=== PATIENT | female | born 1955 | race Caucasian/White ===

== ENCOUNTER 2024-01-17 13:20 | Inpatient (IN) | payer MEDICARE, SELFPAY ==
[2024-01-17] VITALS (11 sets, daily range): BP systolic 104–175; BP diastolic 70–122; PULSE 92–130; RESP 15–26; TEMP 36.1–36.9; O2SAT 90–99; BMI 26.7; BMI 26.2
[2024-01-17] MEDS: Metoprolol Tartrate 5 MG/5 ML Vial IV (14:38)
[2024-01-17] MEDS: 0.9% Normal Saline (500mL Bag) 500 ML 999 ML IV (14:38)
[2024-01-17 14:49] LABS: Absolute Lymphocyte Count 2.19 X10^3/uL (0.83-4.51); Absolute Neutrophil Count 6.1 X10^3/uL (2.0-7.7); Basophil# 0.05 X10^3/uL; Basophil% 0.5 % (0-1); Eosinophil# 0.12 X10^3/uL; Eosinophils% 1.3 % (0-5); Hematocrit 38.7 % (37-47); Hemoglobin 12.4 g/dL (12.0-15.0); Lymphocyte # 2.19 X10^3/ul (0.83-4.51); Mean Corpuscular Hgb 28.5 pg (27.0-32.0); Mean Platelet Vol. 10.9 fl (6.2-12.0); Monocyte# 0.61 X10^3/uL; Monocyte% 6.7 % (0-10); NRBC Flagged by Analyzer 0 % (0-5); Neutrophil # 6.13 X10^3/uL (2.7-7.7); Neutrophil % 67.1 % (47-70); Platelet Count 304 K/mm3 (150-450); RBC Distribution Width CV 13.5 % (11.6-14.6); RBC Distribution Width SD 44.1 fl (35.1-43.9); Red Blood Count 4.35 M/mm3 (4.2-5.4); White Blood Count 9.1 K/mm3 (4.4-11.0)
--- NOTE | 2024-01-17 14:50 | RAD_ITS ---
STUDY: X-RAY CHEST REASON FOR EXAM: Female, 69 years old. sob, cough TECHNIQUE: PA and lateral views of the chest. COMPARISON: None. FINDINGS: EKG electrodes are seen. There is evidence of vascular congestion and mild CHF with bibasilar atelectasis. Blunting of the costophrenic angles bilaterally. There is mild cardiac enlargement. Normal mediastinum and ann-marie. Normal visualized pulmonary arteries. There is atherosclerotic tortuosity of the aortic arch and descending thoracic aorta. There is a dextroscoliosis of the thoracic spine. Normal visualized ribs, clavicles, and shoulders. There is no demonstrated abnormality of the visualized soft tissue structures of the upper abdomen. RAD/Chest PA and Lateral IMPRESSION: Cardiomegaly. Findings suggest mild degree CHF with bibasilar atelectasis and blunting of both costophrenic angles. Electronically Signed: Yovanny Stephens MD at 15:10 EDT ,
[2024-01-17 14:53] LABS: International Normalized Ratio 1.1; Prothrombin Time (Protime)PT. 14.4 SECONDS (11.7-14.9)
[2024-01-17 14:54] LABS: Partial Thromboplast Time 31.2 Seconds (24.1-36.2)
[2024-01-17 15:02] LABS: ALB/GLOB Ratio 0.9 RATIO (0.9-2.4); AST(SGOT) 63 U/L (15-37); Alanine Aminotransfer ALT/SGPT 73 U/L (13-56); Albumin, Serum 3.5 g/dL (3.2-5.0); Alkaline Phosphatase 103 U/L (45-117); Anion Gap 8 (5-15); BUN 13 mg/dL (7-18); BUN/Creat Ratio 21.6 RATIO (10-20); Calcium,Total 9.2 mg/dL (8.5-10.1); Chloride 105 mmol/L (98-107); EST Glomerular Filtration Rate 105 mL/min (>60); Est Glom Filt Rate - Afr Amer 127 mL/min (>60); Estimated Creatinine Clearance 69.76 ml/min; Globulin 3.7 g/dL (2.2-4.2); Glucose 113 mg/dL (74-106); Potassium 3.7 mmol/L (3.5-5.1); Protein, Total 7.2 g/dL (6.4-8.2); Sodium Level 137 mmol/L (136-145); Troponin-I HS 36 pg/mL (3.0-54.0)
[2024-01-17 15:10] LABS: D-Dimer Quantitative (DVT/PE) 1.35 FEU/ug/m (0.27-0.49)
--- NOTE | 2024-01-17 15:16 | CT_ITS ---
STUDY: CTA CHEST REASON FOR EXAM: Female, 69 years old. sob, elevated dimer, PE concern RADIATION DOSAGE (If Supplied By Facility): CTDIvol = ( 10.67 ) mGy, DLP = ( 410.52 ) mGycm TECHNIQUE: The examination was performed with the intravenous administration of IV 100mL Isovue-370. Post-processing of the angiographic images was performed, with multiplanar reformation and 3D reconstruction. Individualized dose optimization techniques were used for this CT. COMPARISON: None. FINDINGS: Normal enhancement of the main pulmonary artery and right and left pulmonary arteries. Normal enhancement of the bilateral peripheral pulmonary arteries. There is no demonstrated pulmonary embolism. Normal thoracic aorta and visualized great vessels. There is no demonstrated aortic dissection. There is moderate cardiomegaly. There are calcifications of the coronary arteries. Moderate prevascular adenopathy. Hilar adenopathy not excluded. Normal visualized trachea. The lungs are well expanded. Bilateral small pleural effusions right worse than left, with compressive atelectasis of both lower lobes. Patchy groundglass areas of density in both lungs especially lower lobes consistent with subsegmental atelectasis and possible mild pulmonary edema. Prominent diffuse thickening of the wall of the small airways to the lower lung pro consistent with bronchitis. Normal chest wall structures. There are degenerative changes of thoracic spine. Normal visualized upper abdomen. CT/CTA Chest W/WO Contrast IMPRESSION: Normal CTA chest examination, without a demonstrated pulmonary embolism or arterial dissection. Cardiomegaly. Pleural effusions. Diffuse bronchitis. Patchy areas of pulmonary density. Electronically Signed: Raciel Montilla MD at 16:21 EDT ,
[2024-01-17 15:19] LABS: BNP,B-Type NATRIURETIC PEPTIDE 413.7 pg/mL (0-100)
--- NOTE | 2024-01-17 15:52 | EDS_ITS ---
HPI History of Present Illness Chief Complaint: Palpitations Informant: patient Narrative Narrative: Patient is a 69-year-old female with history of anxiety but denies any other medical history presenting with 1 week of worsening respiratory symptoms. She states she has had a cough or cold for the past week. She is been more short of breath the past few days. She has not been sleeping well because of her breathing. She denies any fever but has been having episodes of sweating. Denies any chest pain, lightheadedness, dizziness or appetite change. Denies history of DVT or PE or swelling of the legs. Denies any recent medication changes and does not take any blood thinners. Denies any associated GI or symptoms. Notes her mother lived until 97 and ultimately of COPD and her father of a heart attack at age 45. No other complaints or concerns reported at this time. [facility] Medical History Uterine fibroid Home Medications ?Medication ?Instructions ?Recorded ?Last Taken ?Type paroxetine HCl 30 mg tablet 30 mg PO DAILY 01/17/24 Unknown History Allergy/AdvReac Type Severity Reaction Status Date / Time Sulfa (Sulfonamide Allergy Hives Verified 01/17/24 13:21 Antibiotics) Social History Smoking Status: Never smoker ROS ROS ED Constitutional Constitutional ED: Reports sweats; Denies chills or fever(s) ENT ENT ED: Reports rhinorrhea Cardiovascular Cardiovascular: Reports orthopnea; Denies chest pain, palpitations or racing heartbeat Respiratory/Chest Respiratory/Chest: Reports cough, dyspnea on exertion and orthopnea Gastrointestinal Gastrointestinal: Denies abdominal pain, nausea or vomiting Musculoskeletal Musculoskeletal: Denies arthralgias or myalgias Integumentary Denies rash Neurologic Neurologic: Denies headache(s) Psychiatric Psychiatric: Reports anxiety Hematologic/Lymphatic Hematologic/Lymphatic: Denies easy bleeding or easy bruising EXAM Physical Exam Const Vital Signs: 01/17/24 13:21 01/17/24 13:40 01/17/24 13:42 Temperature 97 F L Temperature Source Temporal Pulse Rate 130 H Respiratory Rate 18 Respiratory Effort Short of Breath Short of Breath Respiratory Pattern Tachypnea Blood Pressure 175/122 H Blood Pressure Mean 139 Pulse Ox 99 Oxygen Delivery Method Room Air Room Air Oxygen Flow Rate (L/min) 01/17/24 14:37 01/17/24 16:00 Temperature Temperature Source Pulse Rate 110 H 106 H Respiratory Rate 20 H 26 H Respiratory Effort Respiratory Pattern Blood Pressure 124/96 H 119/87 H Blood Pressure Mean 105 97 Pulse Ox 95 92 Oxygen Delivery Method Nasal Cannula Nasal Cannula Oxygen Flow Rate (L/min) 2 2 Positive well nourished and well developed General Appearance ED: well developed and NAD HEENT Reports moist mucous membranes Eyes PERRL and EOMs intact bilaterally Neck supple and no JVD Resp normal respiratory effort Resp Narrative: Slight crackles at the base appreciated, slightly worse on the right Auscultation: diminished lung sounds bilateral lower GI non-tender Auscultation: normoactive bowel sounds Palpation: soft Extremity normal to inspection General Extremety ED: Negative for edema General Extremity: Negative for edema Neuro oriented x3 Sensorium / Orientation: alert Motor Exam: Negative for general weakness Psych mental status grossly normal Skin no wounds Rashes: no rashes MDM MDM MDM Narrative Medical decision making narrative: Patient presents for worsening shortness of breath, dyspnea on exertion and cough. Show she is a little dizzy intermittently with exertion. Upon arrival patient is hypertensive and tachycardic. EKG shows atrial fibrillation with rapid ventricular response at a rate of 110 bpm. In the room patient fluctuates between 90 and 110 bpm but with any type of movement exertion will go up to the 130s. She is also intermittently hypoxic going down to 88 to 90%. She does not wear baseline oxygen. Differential includes was not limited to pneumonia, heart failure, new onset atrial fibrillation, ACS, pulmonary emboli, pneumothorax, symptomatic anemia Patient initially given a 500 cc bolus for concern of infectious etiology as a cause of her presentation as well as 5 mg of IV metoprolol. She remains hemodynamically stable in the ER. CBC largely normal. Coags are normal. D- dimer is elevated 1.[address] is ordered. She has an elevated TSH of 12.7 but her free T4 and T3 are normal. High C troponin is normal at 36 and her BNP is elevated at 413. Chest x-ray viewed by myself as well as radiology shows cardiomegaly and finding suggestive of mild CHF with blunting of the costophrenic angles. CTA of the chest shows no pulmonary emboli But does show cardiomegaly, pleural effusions, diffuse bronchitis and patchy areas of pulmonary density which is consistent with subsegmental atelectasis and possible mild pulmonary edema. Given her new onset of atrial fibrillation as well as new onset of suspected fluid overload/heart failure and hypoxia with ambulation (goes down to 88%) I do think patient benefit from inpatient evaluation and inpatient cardiology consult. Patient is agreeable. She started on 20 mg IV Lasix and given 25 mg oral metoprolol. Will discuss with admitting physician. Lab Data Labs: Laboratory Results - last 24 hr 01/17/24 01/17/24 12:35 13:35 WBC 9.1 RBC 4.35 Hgb 12.4 Hct 38.7 MCV 89.0 MCH 28.5 MCHC 32.0 RDW Std Deviation 44.1 H RDW Coeff of Fabi 13.5 Plt Count 304 MPV 10.9 Immature Gran % (Auto) 0.400 Neut % (Auto) 67.1 Lymph % (Auto) 24.0 [place] % (Auto) 6.7 Eos % (Auto) 1.3 Baso % (Auto) 0.5 Absolute Neuts (auto) 6.1 Absolute Lymphs (auto) 2.19 Nucleated RBC % 0 PT 14.4 INR 1.1 APTT 31.2 D-Dimer Quant (PE/DVT) 1.35 H* Sodium 137 Potassium 3.7 Chloride 105 Carbon Dioxide 24.0 Anion Gap 8 BUN 13 Creatinine 0.60 Estim Creat Clear Calc 69.76 Est GFR (MDRD) Af Amer 127 Est GFR (MDRD) Non-Af 105 BUN/Creatinine Ratio 21.6 H Glucose 113 H Calcium 9.2 Total Bilirubin 0.50 AST 63 H ALT 73 H Alkaline Phosphatase 103 Troponin I High Sens 36 B-Natriuretic Peptide 413.7 H Total Protein 7.2 Albumin 3.5 Globulin 3.7 Albumin/Globulin Ratio 0.9 TSH 12.700 H Free T4 0.80 Free T3 pg/dL 2.2 Radiography Diagnostic Testing: Clinical Impression(s) from Imaging Studies Chest X-Ray 01/17/24 14:50 IMPRESSION: Cardiomegaly. Findings suggest mild degree CHF with bibasilar atelectasis and blunting of both costophrenic angles. Electronically Signed: Yovanny Stephens MD at 15:10 EDT , Chest CTA 01/17/24 15:16 IMPRESSION: Normal CTA chest examination, without a demonstrated pulmonary embolism or arterial dissection. Cardiomegaly. Pleural effusions. Diffuse bronchitis. Patchy areas of pulmonary density. Electronically Signed: Raciel Montilla MD at 16:21 EDT , Rhythm Strip Rhythm Strip: A-fib Rate: 110 Ectopy: None EKG Initial EKG: Attestation: I personally reviewed and interpreted this EKG as follows: Interpretation: Atrial Fibrillation Comments: Atrial fibrillation with rapid ventricular response at a rate of 110 bpm Normal axis Normal intervals Normal ST segments Management Discussion w/another healthcare provider: Hospitalist Discharge Plan Triage Chief Complaint: Palpitations Other Complaint: Shortness of Breath ED Provider: Hafsa Dahl Dx/Rx/DC Orders Clinical Impression: Atrial fibrillation with RVR, Pleural effusion, Hypoxia, CHF (congestive heart failure) Prescriptions: No Action paroxetine HCl 30 mg tablet 30 mg PO DAILY Primary Care Provider: Babar Bush Referrals: Babar Bush MD [Primary Care Provider] - Print Language: [place]atian Disposition Disposition: Acute Care Hospital [facility]
[2024-01-17 16:20] LABS: Free T3 2.2 pg/mL (2.18-3.98)
[2024-01-17] MEDS: Furosemide 40 MG/4 ML Vial IV (17:24)
[2024-01-17] MEDS: Metoprolol Tartrate 25 MG Tablet PO (17:24)
--- NOTE | 2024-01-17 18:04 | PCM.HP.STD ---
HPI - General General Date of Admission: 01/17/24 Date of Service: 01/17/24 Chief Complaint: Increasing SOB HPI Narrative EUN FARRIS, is a 69-year-old female with history of anxiety presented to [facility] ED 01/17/2024 with palpitations. She was sent over by [facility] urgent care due to increased cough and shortness of breath for the past couple days and she was told she had an irregular heartbeat and to come to the ED. In the ED heart rate 130 initially with blood pressure 175/122 when she was given 5 of IV Lopressor. In ED patient with TSH of 12.7, D-dimer 1.35, BNP 413 and chest x-ray with cardiomegaly and findings suggestive of mild degree of CHF. Given concerns for fluid overload/CHF as well as new A-fib with heart rate up to 130s with any movement and SpO2 intermittently down to 88% hospitalist contacted for admission. Patient evaluated at bedside. She reports that she has had increasing shortness of breath with cough with minimal sputum over the past 1 week with some stuffy nose and sore throat, over the past 2 days she has had significant dyspnea on exertion limiting her mobility and today she had to stop twice when she was walking from her car to urgent care. Denies fevers, denies any purulent or foul-smelling sputum, no chest pain, no noted swelling or weight gain, ROS negative aside from a cat bite to her foot yesterday which at this time has no cellulitic changes or complaints [facility], [facility] Medical History Uterine fibroid Home Medications ?Medication ?Instructions ?Recorded ?Last Taken ?Type paroxetine HCl 30 mg tablet 30 mg PO DAILY 01/17/24 Unknown History Allergy/AdvReac Type Severity Reaction Status Date / Time Sulfa (Sulfonamide Allergy Hives Verified 01/17/24 13:21 Antibiotics) Social History Smoking Status: Never smoker ROS ROS Narrative General: Denies fever/chills HENT: Denies headache, has had nasal congestion and sore throat EYES: Denies changes in vision Resp: Nonproductive cough and increasing shortness of breath Cardiac: Denies chest pain GI: Denies abdominal pain, denies changes in bowel, denies nausea/vomiting : Denies changes in urination Extremity: Denies swelling MSK: Denies weakness Neuro: Denies any numbness/tingling Heme: Denies any bleeding or bruising Skin: Denies rashes, did get cat bite to foot yesterday Psychiatric: No complaints voiced Vital Signs Vital Signs Vital Signs: 01/17/24 13:21 01/17/24 13:40 01/17/24 13:42 Temperature 97 F L Temperature Source Temporal Pulse Rate 130 H Respiratory Rate 18 Respiratory Effort Short of Breath Short of Breath Respiratory Pattern Tachypnea Blood Pressure 175/122 H Blood Pressure Mean 139 Pulse Ox 99 Oxygen Delivery Method Room Air Room Air Oxygen Flow Rate (L/min) 01/17/24 14:37 01/17/24 16:00 Temperature Temperature Source Pulse Rate 110 H 106 H Respiratory Rate 20 H 26 H Respiratory Effort Respiratory Pattern Blood Pressure 124/96 H 119/87 H Blood Pressure Mean 105 97 Pulse Ox 95 92 Oxygen Delivery Method Nasal Cannula Nasal Cannula Oxygen Flow Rate (L/min) 2 2 Weight Weight: 75.2 kg Body Mass Index (BMI) 26.7 Physical Exam Narrative General: Alert, oriented, no apparent distress HEENT: Atraumatic, normocephalic Eyes: Anicteric, normal conjunctiva, extraocular movements grossly intact Neck: Supple Respiratory: Crackles at the bases, slightly increased respiratory effort Cardiovascular: Irregularly irregular with intermittent tachycardia GI: Soft, nontender, nondistended Extremities: No edema Musculoskeletal: Moving all extremities Neuro: No overt focal neurological deficits Skin: No rashes appreciated, no cellulitic changes where patient had cat bite Psych: Cooperative Results Lab / Micro Data 01/17/24 13:35 01/17/24 13:35 Labs: Laboratory Results - last 24 hr 01/17/24 12:35: Free T4 0.80, Free T3 pg/dL 2.2 01/17/24 13:35: WBC 9.1, RBC 4.35, Hgb 12.4, Hct 38.7, MCV 89.0, MCH 28.5, MCHC 32.0, RDW Std Deviation 44.1 H, RDW Coeff of Fabi 13.5, Plt Count 304, MPV 10.9, Immature Gran % (Auto) 0.400, Neut % (Auto) 67.1, Lymph % (Auto) 24.0, [place] % (Auto) 6.7, Eos % (Auto) 1.3, Baso % (Auto) 0.5, Absolute Neuts (auto) 6.1, Absolute Lymphs (auto) 2.19, Nucleated RBC % 0, PT 14.4, INR 1.1, APTT 31.2, D-Dimer Quant (PE/DVT) 1.35 H*, Sodium 137, Potassium 3.7, Chloride 105, Carbon Dioxide 24.0, Anion Gap 8, BUN 13, Creatinine 0.60, Estim Creat Clear Calc 69.76, Est GFR (MDRD) Af Amer 127, Est GFR (MDRD) Non-Af 105, BUN/Creatinine Ratio 21.6 H, Glucose 113 H, Calcium 9.2, Total Bilirubin 0.50, AST 63 H, ALT 73 H, Alkaline Phosphatase 103, Troponin I High Sens 36, B-Natriuretic Peptide 413.7 H, Total Protein 7.2, Albumin 3.5, Globulin 3.7, Albumin/Globulin Ratio 0.9, TSH 12.700 H Micro: Microbiology 01/17/24 14:36 Mucosa - Nose SARS-CoV-2, Influenza & RSV (PCR) - Final Rhythm Strip Rhythm Strip: A-fib Rate: 110 Ectopy: None Imaging Radiology Impression Chest X-Ray 01/17/24 14:50 IMPRESSION: Cardiomegaly. Findings suggest mild degree CHF with bibasilar atelectasis and blunting of both costophrenic angles. Electronically Signed: Yovanny Stephens MD at 15:10 EDT , Chest CTA 01/17/24 15:16 IMPRESSION: Normal CTA chest examination, without a demonstrated pulmonary embolism or arterial dissection. Cardiomegaly. Pleural effusions. Diffuse bronchitis. Patchy areas of pulmonary density. Electronically Signed: Raciel Montilla MD at 16:21 EDT , Assessment & Plan Assessment/Plan (1) Hypoxia: (2) Fluid overload: (3) Atrial fibrillation: PLAN: Plan #New onset atrial fibrillation -Admit to telemetry -Metoprolol started in the ED orally, continue oral metoprolol -[id number] presently at 2 so will not start empiric anticoagulation, strongly suspect heart failure which would give pt a 3, if echo is consistent with heart failure will need to begin anticoagulation which patient was agreeable to -Will order echo -CTA no PE, covid negative -TSH 12.7, no hyperthyroidism -Check Mag -Unclear if this is truly A-fib with RVR or if patient has afib w/heart failure and elevated heart rate is physiologic response as at rest heart rate between 90 and 110 but with exertion goes up to 130s -Will avoid aggressively controlling rate in the event that this is compensatory for low EF while awaiting echo but if heart rate sustains an elevated rate may need further adjustments in rate control, given unclear EF would potentially need to consider amiodarone if drip required for rate control -Patient denies any tobacco, substance, alcohol use # Increased shortness of breath with concern for fluid overload due to heart failure -BNP 413 -Chest x-ray with cardiomegaly and findings suggest mild degree of CHF and CTA w/ no PE but cardiomegaly, pleural effusions -Echo -Fluid restriction -Dose of Lasix in ED, will continue, given patient not floridly overloaded and is Lasix na?ve and received 40 IV x 1 in ED will continue at 20 IV daily -Daily weights, I's and O's -Further medical management pending echocardiogram results -No known history of heart failure however findings strongly suggest that increased shortness of breath is due to a heart failure exacerbation #Hypoxemia -Patient down to 88% on room air -Suspect this is secondary to fluid overload primarily -Continue IV Lasix -Does have some patchy areas of pulmonary density and diffuse bronchitis on CT however so cannot rule out a secondary component- if oxygenation does not improve with treating fluid overload may need further pulm workup -Will check respiratory panel as well given O2 and findings on CT #Cat bite -Patient with cat bite on foot which warrants antibiotic prophylaxis -Started on Augmentin 875 mg twice daily which can be continued for 3 to 5 days, suspect 3 may be adequate # Elevated TSH -TSH of 12 and free T4 technically normal but on lower end -Will repeat studies in the morning, Will likely need to begin Synthroid on or prior to discharge #Diffuse bronchitis and patchy areas of pulm densities -Covid negative -Will check resp panel -No abx indicated -Incentive spirometry #Hx anxiety -Continue paroxetine #DVT ppx: Abraham Harding MD Charges/Coding Visit Charges Inpatient E&M: 35787 Init Hosp L2
--- NOTE | 2024-01-17 19:16 | ECHOD_ITS ---
Reason For Study: CHF, NEW ONSET AFIB Procedure This was a 2D Doppler, Color Flow transthoracic echocardiogram. Exam performed portable in patient room. Left Ventricle Mildly dilated left ventricle. The estimated ejection fraction is 45-50 %. Right Ventricle Normal right ventricle. Normal systolic function. Atria The left atrium is moderately enlarged. The right atrium is moderately enlarged. Mitral Valve The mitral valve is structurally normal. No prolapse or stenosis seen. Moderately severe (3+) mitral valve insufficiency. Tricuspid Valve Normal tricuspid valve. Mild to moderate (1-2+) tricuspid valve insufficiency. Great Vessels Normal aortic root. Pericardium/Pleural No pericardial effusion. MMode/2D Measurements & Calculations LVIDd: 4.6 cm IVSd: 0.85 cm Ao root diam: 3.2 cm LVIDs: 3.5 cm LVPWd: 0.75 cm LA dimension: 4.6 cm RVDd: 3.4 cm FS: 22.5 % LAV(MOD-bp): 89.0 ml SV(MOD-sp4): 37.6 ml LVAd ap4: 26.2 cm2 LAV(MOD-bp) Indexed: 48.7 ml/m2 LVLd ap4: 7.5 cm LAV(MOD-sp2): 81.3 ml EDV(MOD-sp4): 75.5 ml LAV(MOD-sp4): 91.4 ml EDV(sp4-el): 77.7 ml LVAs ap4: 17.0 cm2 LVLs ap4: 6.6 cm ESV(MOD-sp4): 38.0 ml ESV(sp4-el): 37.5 ml EF(MOD-sp4): 49.7 % EF(sp4-el): 51.7 % SV(sp4-el): 40.1 ml LA A4 area: 27.3 cm2 RA A4 area: 30.6 cm2 TAPSE: 1.2 cm Doppler Measurements & Calculations MV E max [place]: 110.1 cm/sec MV V2 max: 140.0 cm/sec Ao V2 max: 89.2 cm/sec MV max P.9 mmHg Ao max P.2 mmHg MV V2 mean: 60.3 cm/sec Ao V2 mean: 71.9 cm/sec MV mean P.1 mmHg Ao mean P.2 mmHg MV V2 VTI: 30.3 cm Ao V2 VTI: 15.8 cm AV (velocity ratio): 0.79 LV V1 max: 80.6 cm/sec MR max [place]: 475.7 cm/sec TR max [place]: 279.2 cm/sec LV V1 max P.7 mmHg MR max P.5 mmHg TR max P.2 mmHg LV V1 mean P.6 mmHg MR mean [place]: 343.3 cm/sec LV V1 mean: 59.6 cm/sec MR mean P.5 mmHg LV V1 VTI: 12.6 cm MR VTI: 151.6 cm ECHO/Echo Complete Interpretation Summary The estimated ejection fraction is 45-50 %. Mild LV systolic dysfunction With mild global LV hypokinesia Moderate to severe MR Mild to moderate TR. No prior echo to compare Ordering Physician: Nicky Harding Performed By: Jj Talbot RCS
[2024-01-17] MEDS: Amox/Clavulanate 875 MG Tablet PO (21:06)
[2024-01-17] MEDS: Metoprolol Tartrate 25 MG Tablet 12.5 MG PO (21:06)
--- NOTE | 2024-01-17 22:10 | EKG12_ITS ---
Test Reason : PALPITATIONS Blood Pressure : / mmHG Vent. Rate : 110 BPM Atrial Rate : 000 BPM P-R Int : 000 ms QRS Dur : 082 ms QT Int : 334 ms P-R-T Axes : 000 086 093 degrees QTc Int : 452 ms Atrial fibrillation with rapid ventricular response Possible Lateral infarct , age undetermined Abnormal ECG Confirmed by ROXY HORNER ([id number]), loan expeditor FITO PARKER ([id number]) on 01/21/2024 8:25:10 AM Referred By: Confirmed By:ROXY HORNER
--- NOTE | 2024-01-17 23:02 | EKG12_ITS ---
Test Reason : RHYTHM CHANGE Blood Pressure : / mmHG Vent. Rate : 091 BPM Atrial Rate : 000 BPM P-R Int : 000 ms QRS Dur : 080 ms QT Int : 396 ms P-R-T Axes : 000 088 098 degrees QTc Int : 487 ms Atrial fibrillation Possible Lateral infarct , age undetermined Abnormal ECG When compared with ECG of 17-JAN-2024 13:36, MANUAL COMPARISON REQUIRED, DATA IS UNCONFIRMED Confirmed by ROXY HORNER ([id number]), publication editor LARISSA GERMAIN ([id number]) on 01/21/2024 10:17:28 AM Referred By: Confirmed By:ROXY HORNER
[2024-01-18 03:10] VITALS: BP 129/69; PULSE 95; RESP 18; TEMP 36.9; O2SAT 92
[2024-01-18 05:15] VITALS: BMI 26.2
[2024-01-18 06:44] LABS: Absolute Lymphocyte Count 1.73 X10^3/uL (0.83-4.51); Absolute Neutrophil Count 5.3 X10^3/uL (2.0-7.7); Basophil# 0.04 X10^3/uL; Basophil% 0.5 % (0-1); Eosinophil# 0.12 X10^3/uL; Eosinophils% 1.6 % (0-5); Hematocrit 37.8 % (37-47); Hemoglobin 12.3 g/dL (12.0-15.0); Lymphocyte # 1.73 X10^3/ul (0.83-4.51); Lymphocyte % 22.6 % (19-41); Mean Corp Hgb Conc 32.5 g/dL (32-36); Mean Corpuscular Hgb 28.6 pg (27.0-32.0); Mean Corpuscular Volume 87.9 fL (81-99); Mean Platelet Vol. 10.1 fl (6.2-12.0); Monocyte# 0.49 X10^3/uL; Monocyte% 6.4 % (0-10); NRBC Flagged by Analyzer 0 % (0-5); Neutrophil # 5.26 X10^3/uL (2.7-7.7); Neutrophil % 68.5 % (47-70); Platelet Count 276 K/mm3 (150-450); RBC Distribution Width CV 13.6 % (11.6-14.6); RBC Distribution Width SD 43.6 fl (35.1-43.9); White Blood Count 7.7 K/mm3 (4.4-11.0)
[2024-01-18 07:30] LABS: AST(SGOT) 66 U/L (15-37); Alanine Aminotransfer ALT/SGPT 94 U/L (13-56); Albumin, Serum 3.4 g/dL (3.2-5.0); Alkaline Phosphatase 101 U/L (45-117); Anion Gap 6 (5-15); BUN 12 mg/dL (7-18); BUN/Creat Ratio 18.5 RATIO (10-20); Calcium,Total 9.1 mg/dL (8.5-10.1); Chloride 106 mmol/L (98-107); Cholesterol 137 mg/dL (200); Creatinine, Serum 0.65 mg/dL (0.55-1.02); EST Glomerular Filtration Rate 97 mL/min (>60); Est Glom Filt Rate - Afr Amer 117 mL/min (>60); Estimated Creatinine Clearance 69.08 ml/min; Globulin 3.4 g/dL (2.2-4.2); Glucose 100 mg/dL (74-106); High Density Lipoprotein 42 mg/dL; Potassium 3.8 mmol/L (3.5-5.1); Protein, Total 6.8 g/dL (6.4-8.2); Sodium Level 138 mmol/L (136-145); T4 Free Direct 0.91 ng/dL (0.76-1.46); Triglycerides 159 mg/dL; Very Low Density Lipoprotein 32 mg/dL (5-40)
[2024-01-18 10:07] VITALS: BP 111/82; PULSE 88; RESP 16; TEMP 36.6; O2SAT 97
[2024-01-18 10:11] VITALS: BP 111/82; PULSE 88
[2024-01-18] MEDS: PARoxetine 10 MG Tablet 30 MG PO (10:11)
[2024-01-18] MEDS: Metoprolol Tartrate 25 MG Tablet 12.5 MG PO ×2 (10:11→21:07)
[2024-01-18] MEDS: Furosemide 20 MG/2 ML VIAL IV (10:11)
[2024-01-18] MEDS: Amox/Clavulanate 875 MG Tablet PO ×2 (10:11→21:07)
[2024-01-18] MEDS: 0.9% Saline Lock 10 ML Syringe IV ×2 (10:18→21:08)
--- NOTE | 2024-01-18 12:03 | PN.HOSP_ITS ---
Subjective Subjective Doing well, appears to be rate controlled with still in A-fib Objective Data Objective Data Vital Signs: Vital Signs Temp Pulse Resp BP Pulse Ox O2 Del Method O2 Flow Rate 97.8 F 88 16 111/82 H 97 Room Air 2 01/18/24 10:07 01/18/24 10:11 01/18/24 10:07 01/18/24 10:11 01/18/24 10:07 01/18/24 10:07 01/17/24 16:00 Oxygen Flow Rate (L/min) 2 Oxygen Delivery Method Room Air Weight: 162 lb 4.163 oz Body Mass Index (BMI) 26.2 Intake & Output: Intake and Output for Last 24 Hours 01/17/24 01/18/24 01/19/24 03:59 03:59 03:59 Intake Total 700 / 700 250 / 250 Balance 700 / 700 250 / 250 Lab / Micro Data 01/18/24 06:30 01/18/24 06:30 Labs: Laboratory Results - last 24 hr 01/17/24 12:35: Free T4 0.80, Free T3 pg/dL 2.2 01/17/24 13:35: WBC 9.1, RBC 4.35, Hgb 12.4, Hct 38.7, MCV 89.0, MCH 28.5, MCHC 32.0, RDW Std Deviation 44.1 H, RDW Coeff of Fabi 13.5, Plt Count 304, MPV 10.9, Immature Gran % (Auto) 0.400, Neut % (Auto) 67.1, Lymph % (Auto) 24.0, [place] % (Auto) 6.7, Eos % (Auto) 1.3, Baso % (Auto) 0.5, Absolute Neuts (auto) 6.1, Absolute Lymphs (auto) 2.19, Nucleated RBC % 0, PT 14.4, INR 1.1, APTT 31.2, D- Dimer Quant (PE/DVT) 1.35 H*, Sodium 137, Potassium 3.7, Chloride 105, Carbon Dioxide 24.0, Anion Gap 8, BUN 13, Creatinine 0.60, Estim Creat Clear Calc 69.76, Est GFR (MDRD) Af Amer 127, Est GFR (MDRD) Non-Af 105, BUN/Creatinine Ratio 21.6 H, Glucose 113 H, Calcium 9.2, Total Bilirubin 0.50, AST 63 H, ALT 73 H, Alkaline Phosphatase 103, Troponin I High Sens 36, B-Natriuretic Peptide 413.7 H, Total Protein 7.2, Albumin 3.5, Globulin 3.7, Albumin/Globulin Ratio 0.9, TSH 12.700 H 01/18/24 06:30: WBC 7.7, RBC 4.30, Hgb 12.3, Hct 37.8, MCV 87.9, MCH 28.6, MCHC 32.5, RDW Std Deviation 43.6, RDW Coeff of Fabi 13.6, Plt Count 276, MPV 10.1, Immature Gran % (Auto) 0.400, Neut % (Auto) 68.5, Lymph % (Auto) 22.6, [place] % (Auto) 6.4, Eos % (Auto) 1.6, Baso % (Auto) 0.5, Absolute Neuts (auto) 5.3, Absolute Lymphs (auto) 1.73, Nucleated RBC % 0, Sodium 138, Potassium 3.8, Chloride 106, Carbon Dioxide 26.0, Anion Gap 6, BUN 12, Creatinine 0.65, Estim Creat Clear Calc 69.08, Est GFR (MDRD) Af Amer 117, Est GFR (MDRD) Non-Af 97, BUN/Creatinine Ratio 18.5, Glucose 100, Calcium 9.1, Magnesium 2.0, Total Bilirubin 0.60, AST 66 H, ALT 94 H, Alkaline Phosphatase 101, Total Protein 6.8, Albumin 3.4, Globulin 3.4, Albumin/Globulin Ratio 1.0, Triglycerides 159, Cholesterol 137, LDL Cholesterol 63, VLDL Cholesterol 32, HDL Cholesterol 42, T SH 11.300 H, Free T4 0.91 Micro: Microbiology 01/17/24 19:35 Mucosa - Nasopharyngeal Respiratory Panel (PCR) - Final Rhinovirus 01/17/24 14:36 Mucosa - Nose SARS-CoV-2, Influenza & RSV (PCR) - Final Radiography Diagnostic Testing: Radiology Impression Chest X-Ray 01/17/24 14:50 IMPRESSION: Cardiomegaly. Findings suggest mild degree CHF with bibasilar atelectasis and blunting of both costophrenic angles. Electronically Signed: Yovanny Stephens MD at 15:10 EDT , Chest CTA 01/17/24 15:16 IMPRESSION: Normal CTA chest examination, without a demonstrated pulmonary embolism or arterial dissection. Cardiomegaly. Pleural effusions. Diffuse bronchitis. Patchy areas of pulmonary density. Electronically Signed: Raciel Montilla MD at 16:21 EDT , Rhythm Strip Rhythm Strip: A-fib Rate: 110 Ectopy: None Physical Exam Narrative General: Alert, Oriented x3, Cooperative, No apparent distress HEENT: Atraumatic, PERRLA, EOMI, Normocephalic Oral: Moist Mucosa Neck: Supple, No JVD Lungs: Diminished, Normal air movement, No rhonchi, No wheeze, No rales Cardiovascular: Regular rate, Regular Rhythm, Normal S1, Normal S2, No murmurs Abdomen: Soft, Non Tender, Non-Distended, No Hepato-splenomegaly Extremities: No edema, Capillary Refill Less than 3 Seconds Skin: No rashes, No breakdown Musculoskeletal: No Tenderness to Palpation of Joints or Extremities Neurological: No focal neurological deficits, Motor Exam 5/5 strength throughout, Sensory exam intact to light touch and pain Psych/Mental Status: Normal Affect, Appropriate Assessment & Plan Assessment/Plan (1) Hypoxia: (2) Fluid overload: (3) Atrial fibrillation: PLAN: Plan 1. New onset A-fib potentially leading to heart failure ? It is a little bit unclear whether or not heart failure precipitated A-fib or the other way around ? Continue with twice daily metoprolol ?continue with low-dose IV Lasix ? Echo is pending ? [id number] of 2 currently will likely need to be started on anticoagulation, does appear to be family history of A-fib ? TSH of 11.3, but a normal T3 3 and T4, will need to follow-up as an outpatient ? Currently not requiring oxygen, her hypoxia is resolved 2. Cat bite ? She does have a lesion on her foot, continue with Augmentin 3. Anxiety/depression ? Stable ? Continue with her home medications DVT: Eliquis Charges/Coding Visit Charges Inpatient E&M: 66807 Subs Hosp L2
--- NOTE | 2024-01-18 13:02 | CASEMGMT ---
RN CM Face to Face with patient for initial transition planning/care coordination assessment. RN CM introduced self and role at [facility]. Patient lying in bed, alert and oriented. Patient willing to participate in assessment and is able to answer all questions appropriately. Care providers, pharmacy, and demographics verified. Strata: 1 PCP: Rachelle Specialists: none Preferred Pharmacy: [facility] Insurance: [facility] Prescription Benefit: yes, [employer] savings card provided to patient Living Will/HPOA: yes, friend Roseline Hua LNOK: friend, Living Arrangements: Patient lives alone in a single story home with 2 steps and railing to enter. Patient is independent at home. Transportation: self, neighbor, friend DME/HHC: Leonor has cane and walker at home. Patient wishes to discharge home, denies need for home health at this time. Patient states he has no further needs or concerns at this time. CM to follow for discharge planning needs that may arise. Disposition Plan: Patient to discharge home with family support and follow-up plans in place. Kayla STAFFORD, RN, CM
[2024-01-18 15:43] VITALS: BP 108/78; PULSE 97; RESP 16; TEMP 36.6; O2SAT 97
[2024-01-18 21:02] VITALS: BP 103/71; PULSE 92; RESP 16; TEMP 36.4; O2SAT 94
[2024-01-18] MEDS: APIXABAN 5 MG TABLET PO (21:06)
[2024-01-18 21:07] VITALS: PULSE 92
[2024-01-19] VITALS (11 sets, daily range): BP systolic 89–121; BP diastolic 60–94; PULSE 70–106; RESP 14–16; TEMP 36.4–36.6; O2SAT 95–99; BMI 26.3
[2024-01-19] MEDS: Furosemide 20 MG/2 ML VIAL IV (08:18)
[2024-01-19] MEDS: Amox/Clavulanate 875 MG Tablet PO ×2 (08:18→21:46)
[2024-01-19] MEDS: APIXABAN 5 MG TABLET PO ×2 (08:18→21:46)
[2024-01-19] MEDS: PARoxetine 10 MG Tablet 30 MG PO (08:19)
[2024-01-19] MEDS: 0.9% Saline Lock 10 ML Syringe IV (08:19)
[2024-01-19] MEDS: Metoprolol Tartrate 25 MG Tablet 12.5 MG PO ×2 (08:19→11:01)
--- NOTE | 2024-01-19 12:23 | PCM.CONS.C ---
Assessment & Plan Assessment/Plan (1) CHF (congestive heart failure): (2) Pleural effusion: (3) Atrial fibrillation: PLAN: Plan 69-year-old patient presented with symptoms of shortness of breath Symptoms got worse recently when she had been seen and followed by her primary care provider at the [facility] She denies any symptoms of chest pain. Patient has significant family history of CAD Her father at a younger age 45, with myocardial infarction EKG showed atrial fibrillation, T wave inversion noted in V1 and V2. The echocardiographic evaluation showed LV function is reduced with global LV hypokinesia Ejection fraction during a 45-50%, moderate to severe MR CTA reveals no evidence of PE or aortic dissection, small bilateral pleural effusion with pulmonary edema.. Started on treatment by the medical team on a diuretic as well as on anticoagulation and rate control with beta-rodolfo metoprolol She responded well to the current treatment with improvement in symptoms of shortness of breath and better rate control of atrial fibrillation Also of note the patient has a rhinovirus. . Cardiac care plan recommendations; Agree with current treatment plan of the medical team Long-term anticoagulation with Eliquis, renal function is normal 5 mg twice daily Rate control with beta-rodolfo low-dose as tolerated To add CHEMA inhibitor/Entresto as she has reduced EF around 45 to 50% Also reevaluation by cardiac team as an outpatient by echocardiogram to assess severity of the MR possible transesophageal echocardiogram To be scheduled for synchronized cardioversion in 6 to 8 weeks following anticoagulation with Eliquis. If she remained stable does not have any active chest pain and no elevation of cardiac markers with a high sensitive troponin which I requested time to then from cardiac standpoint she can be discharged with a plan to follow-up as an outpatient with the cardiac team Rubén Burns MD,[facility] HPI Consult Data Date of Consult: 01/19/24 HPI Narrative Reason for Consultation: A-fib/acute systolic heart failure HPI Narrative: EUN FARRIS, is a 69 F who [facility] Medical History Uterine fibroid Home Medications ?Medication ?Instructions ?Recorded ?Last Taken ?Type paroxetine HCl 30 mg tablet 30 mg PO DAILY mood disorder 01/17/24 01/17/24 10:00 History Allergy/AdvReac Type Severity Reaction Status Date / Time Sulfa (Sulfonamide Allergy Hives Verified 01/17/24 13:21 Antibiotics) Family History (Updated 01/17/24 @ 19:46 by Caridad Garner) Father Myocardial infarction Mother CVA (cerebral vascular accident) Social History Smoking Status: Never smoker Physical Exam Cardio Cardio Narrative: Seen and evaluated at bedside along with the nursing staff Alert and orientated and was able to give a detailed history about her current presentation. library monitor revealed A-fib with controlled ventricular rate Cardiac examination S1-S2 is regular no systolic or diastolic murmur Chest examination mildly diminished air entry bilateral with mild inspiratory rales Risk Stratification Risk Stratification Applicable: No Objective Data Vital Signs: Vital Signs Temp Pulse Resp BP Pulse Ox O2 Del Method O2 Flow Rate 97.8 F 87 16 94/74 95 Room Air 2 01/19/24 10:56 01/19/24 11:01 01/19/24 10:56 01/19/24 11:01 01/19/24 10:56 01/19/24 10:56 01/17/24 16:00 Oxygen Flow Rate (L/min) 2 Oxygen Delivery Method Room Air Weight: 162 lb 14.746 oz Body Mass Index (BMI) 26.3 Intake & Output: Intake and Output for Last 24 Hours 01/17/24 01/18/24 01/19/24 23:59 23:59 23:59 Intake Total 500 / 700 1470 / 1470 Balance 500 / 700 1470 / 1470 Lab / Micro Data 01/18/24 06:30 01/18/24 06:30 Rhythm Strip Rhythm Strip: A-fib Rate: 110 Ectopy: None Cardiology Labs/Tests Rhythm: EKG: ECHO: Stress Test: Cardiac Cath: PCI: CT Surgery: Holter monitor: EPS: PPM: CXR: Chest CT Scan: Radiography Diagnostic Testing: Radiology Impression Echocardiogram 01/17/24 19:16 Interpretation Summary The estimated ejection fraction is 45-50 %. Mild LV systolic dysfunction With mild global LV hypokinesia Moderate to severe MR Mild to moderate TR. No prior echo to compare Ordering Physician: Nicky Harding Performed By: Jj Talbot RCS
[2024-01-19 12:50] LABS: Troponin-I HS 11 pg/mL (3.0-54.0)
--- NOTE | 2024-01-19 13:27 | PCM.PN.HOSP ---
Subjective Subjective Doing well, no issues overnight. Feels much better Objective Data Objective Data Vital Signs: Vital Signs Temp Pulse Resp BP Pulse Ox O2 Del Method O2 Flow Rate 97.8 F 87 16 94/74 95 Room Air 2 01/19/24 10:56 01/19/24 11:01 01/19/24 10:56 01/19/24 11:01 01/19/24 10:56 01/19/24 10:56 01/17/24 16:00 Oxygen Flow Rate (L/min) 2 Oxygen Delivery Method Room Air Weight: 162 lb 14.746 oz Body Mass Index (BMI) 26.3 Intake & Output: Intake and Output for Last 24 Hours 01/18/24 01/19/24 01/20/24 03:59 03:59 03:59 Intake Total 700 / 700 1270 / 1270 Balance 700 / 700 1270 / 1270 Lab / Micro Data 01/18/24 06:30 01/18/24 06:30 Labs: Laboratory Results - last 24 hr 01/19/24 12:20: Troponin I High Sens 11 Micro: Microbiology 01/17/24 19:35 Mucosa - Nasopharyngeal Respiratory Panel (PCR) - Final Rhinovirus 01/17/24 14:36 Mucosa - Nose SARS-CoV-2, Influenza & RSV (PCR) - Final Radiography Diagnostic Testing: Radiology Impression Echocardiogram 01/17/24 19:16 Interpretation Summary The estimated ejection fraction is 45-50 %. Mild LV systolic dysfunction With mild global LV hypokinesia Moderate to severe MR Mild to moderate TR. No prior echo to compare Ordering Physician: Nicky Harding Performed By: Jj Talbot RCS Rhythm Strip Rhythm Strip: A-fib Rate: 110 Ectopy: None Physical Exam Narrative General: Alert, Oriented x3, Cooperative, No apparent distress HEENT: Atraumatic, PERRLA, EOMI, Normocephalic Oral: Moist Mucosa Neck: Supple, No JVD Lungs: Diminished, Normal air movement, No rhonchi, No wheeze, No rales Cardiovascular: Regular rate, Regular Rhythm, Normal S1, Normal S2, No murmurs Abdomen: Soft, Non Tender, Non-Distended, No Hepato-splenomegaly Extremities: No edema, Capillary Refill Less than 3 Seconds Skin: No rashes, No breakdown, no obvious cellulitic changes cat bite Musculoskeletal: No Tenderness to Palpation of Joints or Extremities Neurological: No focal neurological deficits, Motor Exam 5/5 strength throughout, Sensory exam intact to light touch and pain Psych/Mental Status: Normal Affect, Appropriate Assessment & Plan Assessment/Plan (1) Hypoxia: (2) Fluid overload: (3) Atrial fibrillation: PLAN: Plan 1. New onset A-fib potentially leading to acute systolic CHF ? It is a little bit unclear whether or not heart failure precipitated A-fib or the other way around ? Continue with twice daily metoprolol, will increase to 25 mg p.o. twice daily ?continue with low-dose IV Lasix ? Echo with an EF of 45 to 50% with mild global left ventricular hypokinesia. She did have some inferior T wave inversions so troponins are pending ? Will consult cardiology secondary to the echo findings ? [id number] of 2 currently will likely need to be started on anticoagulation, does appear to be family history of A-fib ? TSH of 11.3, but a normal T3 3 and T4, will need to follow-up as an outpatient ? Currently not requiring oxygen, her hypoxia is resolved 2. Cat bite ? She does have a lesion on her foot, continue with Augmentin 3. Anxiety/depression ? Stable ? Continue with her home medications DVT: Eliquis Charges/Coding Visit Charges Inpatient E&M: 07372 Subs Hosp L2
[2024-01-19 15:13] LABS: Troponin-I HS 10 pg/mL (3.0-54.0)
[2024-01-19] MEDS: Metoprolol Tartrate 25 MG Tablet PO (21:47)
[2024-01-20 03:30] VITALS: BP 103/81; PULSE 81; RESP 14; TEMP 36.5; O2SAT 95
[2024-01-20 03:35] VITALS: BP 103/81; PULSE 89; RESP 14; TEMP 36.5; O2SAT 94
[2024-01-20 05:02] VITALS: BMI 26.3
[2024-01-20 05:44] LABS: Absolute Lymphocyte Count 1.74 X10^3/uL (0.83-4.51); Absolute Neutrophil Count 5.3 X10^3/uL (2.0-7.7); Basophil# 0.03 X10^3/uL; Basophil% 0.4 % (0-1); Eosinophil# 0.17 X10^3/uL; Eosinophils% 2.1 % (0-5); Hematocrit 39.5 % (37-47); Hemoglobin 12.4 g/dL (12.0-15.0); Lymphocyte # 1.74 X10^3/ul (0.83-4.51); Lymphocyte % 21.9 % (19-41); Mean Corp Hgb Conc 31.4 g/dL (32-36); Mean Corpuscular Hgb 28.5 pg (27.0-32.0); Mean Corpuscular Volume 90.8 fL (81-99); Mean Platelet Vol. 10.4 fl (6.2-12.0); Monocyte# 0.64 X10^3/uL; Monocyte% 8.1 % (0-10); NRBC Flagged by Analyzer 0 % (0-5); Neutrophil # 5.32 X10^3/uL (2.7-7.7); Neutrophil % 67.1 % (47-70); Platelet Count 281 K/mm3 (150-450); RBC Distribution Width CV 13.5 % (11.6-14.6); RBC Distribution Width SD 45.1 fl (35.1-43.9); Red Blood Count 4.35 M/mm3 (4.2-5.4); White Blood Count 7.9 K/mm3 (4.4-11.0)
[2024-01-20 06:07] LABS: Anion Gap 6 (5-15); BUN 16 mg/dL (7-18); BUN/Creat Ratio 24.2 RATIO (10-20); Calcium,Total 9.2 mg/dL (8.5-10.1); Chloride 104 mmol/L (98-107); Creatinine, Serum 0.66 mg/dL (0.55-1.02); EST Glomerular Filtration Rate 94 mL/min (>60); Est Glom Filt Rate - Afr Amer 114 mL/min (>60); Estimated Creatinine Clearance 69.25 ml/min; Glucose 101 mg/dL (74-106); Sodium Level 138 mmol/L (136-145)
[2024-01-20 08:56] VITALS: BP 104/76; PULSE 88; RESP 16; TEMP 36.5; O2SAT 98
[2024-01-20] MEDS: APIXABAN 5 MG TABLET PO (09:04)
[2024-01-20] MEDS: Amox/Clavulanate 875 MG Tablet PO (09:04)
[2024-01-20] MEDS: PARoxetine 10 MG Tablet 30 MG PO (09:04)
[2024-01-20 09:05] VITALS: BP 104/76; PULSE 88
[2024-01-20] MEDS: Metoprolol Tartrate 25 MG Tablet PO (09:05)
[2024-01-20] MEDS: Furosemide 40 MG Tablet PO (09:09)
[2024-01-20 09:10] VITALS: O2SAT 90; O2SAT 95
--- NOTE | 2024-01-20 10:12 | DS.PCM_ITS ---
Providers Date of Admission: 01/17/24 Date of Discharge: 01/20/24 Primary Care Physician: Dr. Babar Bush MD Consultations 01/19/24 08:31 Consult: Cardiology Routine Consulting Provider: Rubén Burns Reason for Consult: Slight systolic dysfunction with hypokinesis EMERGENT Consult: No MD Notified: Yes Date Notified: 01/19/24 Time Notified: 08:50 Method of Notification: Verbal Reason For Visit: NEW ONSET AFIB, NEW ONSET SUSPECTED HFW/FLUID Diagnosis Discharge Diagnosis (1) Hypoxia: Status: Acute Code(s): R09.02 - Hypoxemia (2) Fluid overload: Status: Acute Code(s): E87.70 - Fluid overload, unspecified (3) Atrial fibrillation: Status: Acute Code(s): I48.91 - Unspecified atrial fibrillation Medications at Discharge Home Medications paroxetine HCl 30 mg tablet 30 mg PO DAILY mood disorder 01/17/24 apixaban 5 mg tablet (Eliquis) 5 mg PO BID #60 tabs 01/20/24 furosemide 20 mg tablet (Lasix) 20 mg PO DAILY #30 tabs 01/20/24 metoprolol tartrate 25 mg tablet 25 mg PO BID #60 tabs 01/20/24 Hospital Course Operations None Procedures 2-D Echocardiogram, EKG and - (Chest x-ray/CTA chest) Summary of Care Provided Minutes Spent on Discharge: 38 Hospital Course: Ms Lomax is a 69-year-old white female who presents emergency department at [facility] on 01/17/2024 with the chief complaint of worsening shortness of breath specifically noted with exertion. She was sent over by [facility] due to shortness of breath that been going on for couple of days. She also was found to have an irregular heartbeat and told to follow-up in the emergency department here for evaluation. She indicated that her shortness of breath had limited her mobility and she had to stop twice on the day of presentation when she was walking from her car to the urgent care. She denied fever or chills, purulent or foul-smelling sputum and had no chest pain, swelling or weight gain. She did admit to a cat bite on her foot that happened the day prior to presentation but denied any complaints at the time of presentation. Vital signs at the time of presentation showed temperature of 97, heart rate 130, respiratory 18, blood pressure was 175/122 with a repeat of 124/96 and a pulse ox of 99% on room air. Her CBC was unremarkable. Chemistry panel was overtly unremarkable. Troponin was 11 with a delta of 10 and her BNP was found to be elevated at 413. TSH was elevated at 12.7 however free T4 is normal. Coags were normal but her D-dimer was elevated at 1.35. EKG was A-fib with RVR. Chest x-ray showed cardiomegaly with findings consistent with mild CHF. With her D-dimer elevation a CTA of her chest was performed and demonstrated bilateral trace effusions right slightly greater than left, diffuse bronchitis and groundglass changes that were patchy in nature consistent with CHF. She was admitted to the telemetry floor and placed on metoprolol 25 mg p.o. twice daily, fluid restriction, Lasix, strict I's and O's and daily weights and echocardiogram was ordered. Echo showed a mildly dilated LV with an estimated ejection fraction of 45 to 50%. Systolic dysfunction was global. Moderate to severe mitral regurgitation was noted and mild to moderate tricuspid regurgitation was noted. There were no specific wall motion abnormalities. Cardiology was consulted given the findings and agreed with medical management. Her heart rate control was much improved with beta-rodolfo. Unfortunately, her blood pressure was not markedly elevated we were not able to add any other medications for goal-directed therapy to include CHEMA/ARB or hydralazine/nitrate. Farxiga and Jardiance were not covered well under her medication plan so these were deferred at this time as well. She was maintained on metoprolol and apixaban 5 mg p.o. twice daily and transition to Lasix 20 mg daily at the time of discharge. Cardiology recommended outpatient follow-up after discharge as long as her heart rates remained stable which they have on the beta-rodolfo. Prescriptions for the metoprolol, Lasix, and apixaban were sent to local pharmacy and she was given a prescription card for the apixaban prior to discharge. She has to follow-up with her primary care physician in 1 week and we have asked that she obtain a basic metabolic profile to assess her renal function and electrolytes given her Lasix use at discharge and we have asked that she follow-up with cardiology in the next 2 to 4 weeks and to call on 01/21/2024 to set up that outpatient appointment. With regards to her cat bite she was treated with 3 days of Augmentin and had no erythema surrounding the lesion and antibiotics were discontinued prior to discharge. Patient was discharged home in stable condition on 01/20/2024. Ambulatory pulse ox was done prior to discharge and she required no supplemental oxygen. Discharge diagnoses: Atrial fibrillation with RVR -RVR resolved Shortness of breath with hypoxia Acute HFrEF Cardiomyopathy Trace to small bilateral pleural effusion Euthyroid sick syndrome Cat bite Anxiety Depression Physical Exam Const alert, oriented x3, no apparent distress, average body habitus, no limitations, healthy appearing and well nourished Constitutional Narrative: Very pleasant, upper middle-aged, white female, sitting up in bed watching television, appears comfortable, nontoxic General Appearance: cooperative, comfortable, well kempt and well developed Orientation / Consciousness: awake, oriented to person, oriented to place and oriented to time Exam Limitations: no limitations HEENT normocephalic, head/scalp atraumatic, hearing grossly normal bilaterally and moist oral mucous membranes HEENT Narrative: Mallampati 2, no thrush Eyes PERRL, EOMs intact bilaterally and conjunctivae normal Eyes Narrative: No scleral icterus Neck no lymphadenopathy and supple Neck Narrative: Trachea midline, no thyroid enlargement, neck veins are flat Resp normal respiratory effort, no retractions, no use of accessory muscles and clear to auscultation bilaterally Auscultation: Negative for rales, rhonchi or wheezes Cardio regular rate, S1 normal heart sound, S2 normal heart sound, no murmurs, no rub, no gallops and no clicks Cardio Narrative: Irregularly irregular rhythm GI normal to inspection, nondistended, normoactive bowel sounds, soft to palpation and non-tender Extremity no clubbing, cyanosis or edema Extremity Narrative: Radial and pedal pulses are 2+ Skin no rashes or lesions noted, skin turgor normal and no jaundice Skin Narrative: Right foot at area of cat bite with no erythema, marked wound, drainage or significant abnormality Neuro oriented x3, CN's II-XII intact bilaterally, moves all extremities and no focal motor deficits Speech: speech normal Psych affect normal Psych Narrative: Very pleasant, interacts appropriately Weight / BMI Weight Weight: 74 kg Body Mass Index (BMI) 26.3 ABG / Lab / Microbiology Data 01/20/24 05:14 01/20/24 05:14 Laboratory: Laboratory Results - last 24 hr 01/19/24 12:20: Troponin I High Sens 11 01/19/24 14:45: Troponin I High Sens 10 01/20/24 05:14: WBC 7.9, RBC 4.35, Hgb 12.4, Hct 39.5, MCV 90.8, MCH 28.5, MCHC 31.4 L, RDW Std Deviation 45.1 H, RDW Coeff of Fabi 13.5, Plt Count 281, MPV 10.4, Immature Gran % (Auto) 0.400, Neut % (Auto) 67.1, Lymph % (Auto) 21.9, [place] % (Auto) 8.1, Eos % (Auto) 2.1, Baso % (Auto) 0.4, Absolute Neuts (auto) 5.3, Absolute Lymphs (auto) 1.74, Nucleated RBC % 0, Sodium 138, Potassium 4.0, Chloride 104, Carbon Dioxide 28.0, Anion Gap 6, BUN 16, Creatinine 0.66, Estim Creat Clear Calc 69.25, Est GFR (MDRD) Af Amer 114, Est GFR (MDRD) Non-Af 94, B UN/Creatinine Ratio 24.2 H, Glucose 101, Calcium 9.2 Microbiology: Microbiology 01/17/24 19:35 Mucosa - Nasopharyngeal Respiratory Panel (PCR) - Final Rhinovirus 01/17/24 14:36 Mucosa - Nose SARS-CoV-2, Influenza & RSV (PCR) - Final D/C Instructions Discharge Diet: Low fat / Low cholesterol Discharge Activity: Return to Normal Activity Return to work on: 01/21/24 Meaningful Use Info Meaningful Use Meaningful Use Diagnoses (Choose all that apply): None applicable Ischemic Stroke Statin Dosing Therapy Reference: STATIN DOSE THERAPY REFERENCE: * Patients > 75 years receive moderate or high dose statin therapy. * Patients 75 years or YOUNGER should receive HIGH intensity statin dose unless contraindicated. You will be required to document reason for non-treatment if statin daily dose does not meet guidelines. HIGH DOSE STATIN THERAPY DAILY Atorvastatin > than or = to 40 mg Rosuvastatin > than or = to 20 mg Amlodipine + Atorvastatin > than or = to 2.5/40 mg Ezetimibe + Simvastatin 10/80 mg Simvastatin 80mg Discharge Plan Admission Admit Date/Time: 01/17/24 18:04 Primary Reason for Your Visit: Dyspnea with exertion Attending Provider: Erika Lacey Primary Care Provider: Babar Bush Consulting Providers: Nicky Harding; Rubén Burns; Eligio Spangler Instructions Patient Instructions: AFib Dc, AFib Preventing Stroke Additional Instructions / Restrictions: 1. Please call your primary care physician not only to set up an appointment to be seen in the next week but to obtain a basic metabolic profile to be done in the lab to recheck your kidney function and electrolytes. Discharge Orders/Prescriptions Prescriptions: New Eliquis 5 mg Tablet 5 mg PO BID Qty: 60 2RF metoprolol tartrate 25 mg Tablet 25 mg PO BID Qty: 60 0RF furosemide [Lasix] 20 mg tablet 20 mg PO DAILY Qty: 30 0RF Rx Instructions: take in am Continued paroxetine HCl 30 mg tablet 30 mg PO DAILY Referrals / Follow Up: Marques Stevenson MD [Med Staff - Active Staff] - Within 1 Month (Please call to set up an appointment on 01/21/2024) Babar Bush MD [Primary Care Provider] - Within 1 Week (Please call on Saturday to set up an appointment) Disposition Disposition (needs filled in before D/C Order can be placed): Home, Self Care Charges/Coding Visit Charges Inpatient E&M: 50942 Disch Hosp >30min
== END 2024-01-20 11:32 | disposition home or self-care (01) | DRG 308 ==
LOC: ED 17:42 → PCU 18:22
PROVIDERS: Family Medicine; Internal Medicine Interventional Cardiology; Admitting Provider Internal Medicine; Emergency Provider Emergency Medicine; PCP Family Medicine; Visit Provider Internal Medicine
DX: I48.91 Unspecified atrial fibrillation (principal); I50.21 Acute systolic (congestive) heart failure; I42.9 Cardiomyopathy, unspecified; S91.359A Open bite, unspecified foot, initial encounter; F32.A Depression, unspecified; F41.9 Anxiety disorder, unspecified; E07.81 Sick-euthyroid syndrome; W55.01XA Bitten by cat, initial encounter; R94.6 Abnormal results of thyroid function studies
CPT/HCPCS: 36415; 71046; 71275; 80048; 80053; 80061; 83735; 83880; 84439; 84443; 84481; 84484; 85025; 85379; 85610; 85730; 87631; 87633; 93005; 93306; 94668; 99252; 99285; J7030; Q9957; Q9967; A4216; G0463; J1940

== ENCOUNTER → 2024-02-11 | Outpatient (CLI) | payer MEDICARE, SELFPAY ==
[2024-02-11 15:46] LABS: Absolute Lymphocyte Count 1.46 X10^3/uL (0.83-4.51); Absolute Neutrophil Count 4.6 X10^3/uL (2.0-7.7); Basophil# 0.04 X10^3/uL; Basophil% 0.6 % (0-1); Eosinophil# 0.14 X10^3/uL; Eosinophils% 2.1 % (0-5); Hematocrit 40.8 % (37-47); Hemoglobin 12.4 g/dL (12.0-15.0); Lymphocyte # 1.46 X10^3/ul (0.83-4.51); Lymphocyte % 21.7 % (19-41); Mean Corp Hgb Conc 30.4 g/dL (32-36); Mean Corpuscular Hgb 27.9 pg (27.0-32.0); Mean Corpuscular Volume 91.9 fL (81-99); Mean Platelet Vol. 10.7 fl (6.2-12.0); Monocyte# 0.47 X10^3/uL; NRBC Flagged by Analyzer 0 % (0-5); Neutrophil # 4.62 X10^3/uL (2.7-7.7); Neutrophil % 68.5 % (47-70); Platelet Count 248 K/mm3 (150-450); RBC Distribution Width CV 14.1 % (11.6-14.6); RBC Distribution Width SD 47.8 fl (35.1-43.9); Red Blood Count 4.44 M/mm3 (4.2-5.4); White Blood Count 6.7 K/mm3 (4.4-11.0)
[2024-02-11 16:06] LABS: Anion Gap 6 (5-15); BUN 19 mg/dL (7-18); BUN/Creat Ratio 30.7 RATIO (10-20); Calcium,Total 9.3 mg/dL (8.5-10.1); Chloride 104 mmol/L (98-107); Creatinine, Serum 0.62 mg/dL (0.55-1.02); EST Glomerular Filtration Rate 102 mL/min (>60); Est Glom Filt Rate - Afr Amer 124 mL/min (>60); Glucose 109 mg/dL (74-106); Sodium Level 138 mmol/L (136-145)
== END | disposition home or self-care (01) ==
PROVIDERS: Nurse Practitioner Gerontology; PCP Family Medicine; Referring Provider Internal Medicine Cardiovascular Disease; Visit Provider Internal Medicine Cardiovascular Disease
DX: I48.91 Unspecified atrial fibrillation (principal); R93.1 Abnormal findings on diagnostic imaging of heart and coronary circulation; I34.0 Nonrheumatic mitral (valve) insufficiency
CPT/HCPCS: 36415; 80048; 85025

== ENCOUNTER 2024-02-21 07:05 | Day surgery (SDC) | payer MEDICARE, SELFPAY ==
--- NOTE | 2024-02-13 13:29 | HP.PCM_ITS ---
History and Physical Date of Admission: 02/21/24 This is a 69-year-old female who presents today for a cardiac catheterization. She presented to the emergency room on 01/17/2024 with complaints of palpitations, worsening shortness of breath and dizziness. Her EKG on arrival demonstrated atrial fibrillation with rapid ventricular response rate at 110 bpm. D-dimer is elevated 1.[address] is ordered. She has an elevated TSH of 12.7 but her free T4 and T3 are normal. High C troponin is normal at 36 and her BNP is elevated at 413. Chest x-ray viewed by myself as well as radiology shows cardiomegaly and finding suggestive of mild CHF with blunting of the costophrenic angles. CTA of the chest shows no pulmonary emboli But does show c ardiomegaly, pleural effusions, diffuse bronchitis and patchy areas of pulmonary density which is consistent with subsegmental atelectasis and possible mild pulmonary edema. She was admitted for further evaluation. Her echocardiogram on 01/17/2024 demonstrated ejection fraction of 45 to 50%, moderately enlarged left and right atrium, moderately severe mitral valve insufficiency, and mild to moderate tricuspid valve insufficiency. She was started on Eliquis 5 mg twice daily, metoprolol tartrate 25 mg twice daily, and Lasix 20 mg daily. She has a family history of coronary artery disease, and her father at a young age of 45 with myocardial infarction. From a cardiac standpoint, the patient is doing well. She denies any palpitations, chest pain, pressure or heaviness. She does acknowledge occasional SOB with exertion. She denies Orthopnea, and PND. She does not have bleeding issues; no blood in urine, stool or nosebleeds. She denies any decrease in energy level, myalgias, or claudication. She does not have edema, or sudden weight gain. She denies dizziness, lightheadedness, syncopal or near syncopal episodes, and headaches. Intake Vital Signs See EMR Allergies See EMR Medications See EMR [facility] Medical History Uterine fibroid Family History Father Myocardial infarctionMother CVA (cerebral vascular accident) Social History Smoking Status: Never smoker ROS Const Const: Negative for fatigue, weakness, fever(s), headache(s), chills, frequent falls, weight gain or weight loss Eyes Eyes: Negative for blind spots, loss of peripheral vision, transient loss of vision, blurry vision, change in vision, double vision, floaters or tunnel vision ENT ENT: Negative for headache(s), dizziness, Nosebleed/epistaxis, balance problems or neck pain Cardio Chest Pain: No Palpitations: No Edema: None Muscle aches with walking: None Resp Respiratory: Positive for SOB with activity (occasional); Negative for SOB at rest or SOB orthopnea\SOB lying down GI GI: Negative nausea, vomiting, heartburn, bloating, vomiting blood/hematemesis, bright, red blood in stools or black,tarry stools Musc Musc: Negative for muscle aches/ myalgia, muscle weakness, joint pain or balance problems Neuro Neuro: Negative for dizziness, lightheadedness, near syncope, syncope, orthostatic symptoms, frequent falls, headache(s), weakness, blurry vision or double vision Isaiah Hematologic/Lymphatic: Negative for easy bleeding or easy bruising Endo Endo: Negative for fatigue Cardiology Exam Const Appearance: cooperative and no acute distress Orientation: alert and oriented x3 Head Head: normal to inspection Ears: hearing grossly normal bilaterally Nose: external nose normal Face and Sinus: face symmetric Eyes General: appearance normal, both eyes and all related structures Eyelids: eyelids normal Conjunctivae: conjunctivae normal Pupils: PERRL and pupil size EOM: EOM intact bilaterally Neck Neck: normal visual inspection Carotids: Negative bruit Chest Chest inspection: normal inspection of the chest and normal respiratory effort Auscultation: Bilateral: Clear to Auscultation Cardio Palpation: normal PMI Rhythm: irregularly irregular Heart sounds: S1 normal and S2 normal; Negative rub, gallop or murmur GI GI: normal to inspection and soft Neuro General: patient alert, patient oriented x3 and CN's II-XI intact bilaterally Skin Skin: no rashes or lesions noted Extremities Pulses: Normal: Right Posterior Tibial Pulse, Left Posterior Tibial Pulse, Right Radial Pulse and Left Radial Pulse Lower Extremity Edema: None: Bilateral Psych Psychological: normal affect Supplemental Info Supplemental Information Echocardiogram 01/17/2024: Interpretation Summary The estimated ejection fraction is 45-50 %. Mild LV systolic dysfunction With mild global LV hypokinesia Moderate to severe MR Mild to moderate TR. No prior echo to compare Assessment and Plan Assessment and Plan (1) Atrial fibrillation: Status: Acute Plan: Patient has new onset of atrial fibrillation. She appears to be in an irregularly irregular rhythm on exam today. Her ventricular heart rate is well controlled at this time. Her echocardiogram from 01/17/2024 demonstrated an ejection fraction of 45-50%, and moderately enlarged left and right atrium. This was reviewed with patient. Did discuss a cardioversion, but patient will need to be on Eliquis for 4 weeks prior. At this time, she will continue Eliquis 5mg twice daily, and metoprolol tartrate 25mg twice daily. (2) Mitral valve regurgitation: Status: Acute Plan: Patients echocardiogram from 01/17/2024 demonstrated an ejection fraction of 45 to 50%, and moderately severe mitral valve insufficiency. Did discuss with Dr. Davenport, and he would like to proceed with a cardiac catheterization further assess this. Depending on results, further recommendations will be made.
[2024-02-20 07:15] VITALS: BMI 26.1
--- NOTE | 2024-02-21 09:43 | ECHOTEE_ITS ---
Reason For Study: Murmur, mitral regurgitation Medication NINOSKA probe 6VT-D (SN [id number]) passed without difficulty. No complications were noted. Cetacaine Topical [place] given X3 orally. Versed 2 mg given slow IVP. Fentanyl 50 mcg given slow IVP. Performed a rapid injection of agitated mix of 9 cc saline and 1cc air to assess for atrial septal defect. Left Ventricle Normal LV size. Left ventricular systolic function is normal. The estimated ejection fraction is 45 %. No regional wall motion abnormalities noted. Right Ventricle Normal RV size. Normal systolic function. Atria Bubble contrast study negative for right to left interatrial shunt. The left atrium is moderately enlarged. No thrombus is detected in the left atrial appendage. The right atrium is mildly enlarged. Mitral Valve Bileaflet diffuse mitral valve thickening. Moderately severe (3+) eccentric mitral valve insufficiency. Tricuspid Valve Normal tricuspid valve. Moderate (2+) tricuspid valve insufficiency. Aortic Valve Trisinus/trileaflet aortic valve. Pulmonic Valve Normal pulmonic valve. Vessels Normal aortic root. Pericardium No pericardial effusion. Doppler Measurements & Calculations TR max montserrat: 210.7 cm/sec ECHO/Echo Transesophageal (NINOSKA) Interpretation Summary Normal LV size. Left ventricular systolic function is normal. The estimated ejection fraction is 45 %. Moderate (2+) tricuspid valve insufficiency. Moderately severe (3+) eccentric mitral valve insufficiency. Ordering Physician: Can Davenport Referring Physician: Deisy Lee Performed By: Catalina Silveira RDCS
--- NOTE | 2024-02-21 09:47 | CL.D_ITS ---
Patient Name: EUN FARRIS Study Date: 02/21/2024 Performing: Can Davenport MD Ht: 66 inches 167.64 cm : 1955 Wt: 162 lbs 73.48 kg Age: 69 Gender: female BSA: 1.83 PROCEDURE(S) PERFORMED DC01-(13565)LHC/COR/LV CLINICAL PROFILE AND INDICATIONS Indications: Cardiac Arrythmia, Cardiomyopathy Heart Failure: NYHA Class: 2, Newly Diagnosed: Yes, Heart Failure Type: Systolic Stress/Imaging Stress/Image Study Performed: No CAD Presentations: Symptom unlikely to be ischemic. CONCLUSIONS Mild coronary disease involving the first diagonal vessel and mid right coronary artery and mild to moderate left ventricular systolic dysfunction and moderate to moderately severe mitral regurgitation. RECOMMENDATIONS Recommend NINOSKA and evaluation for mitral valve surgery. DESCRIPTION OF PROCEDURE The patient arrived to the procedure lab. The risks and benefits of the procedure as well as a full description of our services here and current unavailability of surgical backup were fully explained to the patient and/or their significant other prior to the catheterization. The Timeout was completed, verifying the correct patient and procedure. The patient's procedural site was prepped and draped in the usual fashion. Local anesthetic was given subcutaneously to right radial region with Lidocaine 2%. Using a modified Seldinger technique, arterial access was obtained via the right radial artery, a 6Fr sheath was inserted. Left Coronary Artery selective angiography was performed in multiple views using a 5 Fr. 4.0 [place] catheter. Right Coronary Artery selective angiography was then performed in multiple views using a 5 Fr. 4.0 [place] catheter. Right Coronary Artery selective angiography was then performed in multiple views using a 5 Fr. JR 5 catheter. Left Ventriculography was performed in HALEY projection using a 5 Fr. Pigtail catheter.The arterial sheath was pulled and a TR Band was applied for hemostasis 10 ml of air CORONARY ANGIOGRAPHY DOMINANCE: Right Dominant LEFT HEART ASSESSMENT Left Ventricular Ejection Fraction: by LV Gram 45 % Global Hypokinesis - Moderate Depressed Left Ventricular systolic function LEFT MAIN: Angiographically normal LEFT ANTERIOR DESCENDING ARTERY: Mild luminal irregularities less than 30% DIAGONAL 1: Proximal - Diffusely diseased up to 80 % CIRCUMFLEX ARTERY: Mild luminal irregularities RAMUS: Angiographically normal RIGHT CORONARY ARTERY: 50 VALVE FINDINGS: Mitral Valve Insufficiency - Grade 3 COMPLICATIONS No Complications PROCEDURE MEDICATIONS Fentanyl 50 mcg IV Versed 1 mg IV Oxygen: 2 L/min via nasal cannula Heparin given IA 02/21/2024 08:34:35 Verapamil 2.5mg, Ntg 100mcgs, 3000 units of Heparin given IA 02/21/2024 08:34:35 SUMMARY OF HEMODYNAMIC DATA Time AIR REST ECG 07:25:06 Art 123/71 (85) 08:29:14 AO 86/66 (76) SA 08:36:27 LV 106/16, 24 08:44:58 LV 103/16, 27 08:45:06 LV 92/15, 25 08:45:54 LV 99/15, 25 08:46:03 LVp 102/16, 25 08:46:08 AOp 102/72 (85) 08:46:15 Signed By Can Davenport MD On 02/21/2024 09:50:24 Signed By Can Davenport MD On 02/21/2024 09:46:16 Can Davenport MD
== END 2024-02-21 11:30 | disposition home or self-care (01) ==
PROVIDERS: PCP Family Medicine; Referring Provider Internal Medicine Cardiovascular Disease; Visit Provider Internal Medicine Cardiovascular Disease
DX: I48.91 Unspecified atrial fibrillation (principal); I50.22 Chronic systolic (congestive) heart failure; I42.9 Cardiomyopathy, unspecified; I34.0 Nonrheumatic mitral (valve) insufficiency; I25.10 Atherosclerotic heart disease of native coronary artery without angina pectoris; Z82.49 Family history of ischemic heart disease and other diseases of the circulatory system
CPT/HCPCS: 93458; 99152; 99153; J7040; Q9967; A4216; C1769; C1894

== ENCOUNTER → 2024-03-18 | Outpatient (CLI) | payer MEDICARE, SELFPAY ==
[2024-03-18 11:48] LABS: BNP,B-Type NATRIURETIC PEPTIDE 424.9 pg/mL (0-100)
== END | disposition home or self-care (01) ==
LOC: LAB 10:28
PROVIDERS: PCP Family Medicine; Referring Provider Physician Assistant Medical; Visit Provider Physician Assistant Medical
DX: R06.09 Other forms of dyspnea (principal)
CPT/HCPCS: 36415; 83880

== ENCOUNTER → 2024-04-02 | Outpatient (CLI) | payer MEDICARE, SELFPAY ==
[2024-04-02 14:13] LABS: Anion Gap 6 (5-15); BUN 13 mg/dL (7-18); BUN/Creat Ratio 18.9 RATIO (10-20); Calcium,Total 9.1 mg/dL (8.5-10.1); Chloride 105 mmol/L (98-107); Creatinine, Serum 0.69 mg/dL (0.55-1.02); EST Glomerular Filtration Rate 90 mL/min (>60); Est Glom Filt Rate - Afr Amer 109 mL/min (>60); Glucose 78 mg/dL (74-106); Potassium 3.6 mmol/L (3.5-5.1); Sodium Level 139 mmol/L (136-145)
[2024-04-02 14:21] LABS: BNP,B-Type NATRIURETIC PEPTIDE 563.5 pg/mL (0-100)
== END | disposition home or self-care (01) ==
LOC: LAB 13:14
PROVIDERS: PCP Family Medicine; Referring Provider Physician Assistant Medical; Visit Provider Physician Assistant Medical
DX: I50.31 Acute diastolic (congestive) heart failure (principal)
CPT/HCPCS: 36415; 80048; 83880

== ENCOUNTER → 2024-04-20 | Outpatient (CLI) | payer MEDICARE, SELFPAY ==
[2024-04-20 15:12] LABS: AST(SGOT) 39 U/L (15-37); Alanine Aminotransfer ALT/SGPT 42 U/L (13-56); Albumin, Serum 3.5 g/dL (3.2-5.0); Alkaline Phosphatase 169 U/L (45-117); Anion Gap 7 (5-15); BUN 13 mg/dL (7-18); BUN/Creat Ratio 19.2 RATIO (10-20); Calcium,Total 9.1 mg/dL (8.5-10.1); Chloride 98 mmol/L (98-107); Creatinine, Serum 0.68 mg/dL (0.55-1.02); EST Glomerular Filtration Rate 92 mL/min (>60); Est Glom Filt Rate - Afr Amer 111 mL/min (>60); Globulin 3.5 g/dL (2.2-4.2); Glucose 99 mg/dL (74-106); Potassium 3.5 mmol/L (3.5-5.1); Sodium Level 133 mmol/L (136-145)
== END | disposition home or self-care (01) ==
LOC: LAB 13:41
PROVIDERS: PCP Family Medicine; Referring Provider Nurse Practitioner Family; Visit Provider Nurse Practitioner Family
DX: I50.31 Acute diastolic (congestive) heart failure (principal); I34.0 Nonrheumatic mitral (valve) insufficiency
CPT/HCPCS: 36415; 80053